=== PATIENT | female | born 1960 | race Caucasian/White ===

== ENCOUNTER → 2018-09-15 | Outpatient (CLI) | payer OTHER ==
--- NOTE | 2018-09-15 17:56 | Diagnostic Imaging Report ---
EXAMINATION: CHEST 2 VIEWS INDICATION: \[id number] \S\[id number] \S\Simple chronic bronchitis COMPARISON: None FINDINGS: PA and lateral views TUBES and LINES: None. LUNGS: Lungs are well inflated. Lungs are clear. There is no evidence of pneumonia or pulmonary edema. PLEURA: No pleural effusion or pneumothorax. HEART AND MEDIASTINUM: The cardiomediastinal silhouette is unremarkable. BONES AND SOFT TISSUES: No acute osseous lesion. Soft tissues are unremarkable. UPPER ABDOMEN: No free air under the diaphragm. IMPRESSION: No acute thoracic abnormality. Signed by: DR. Levy Davalos MD on 09/15/2018 5:52 PM
== END ==
LOC: RAD 17:10
PROVIDERS: ATTEND Internal Medicine
DX: J41.0 Simple chronic bronchitis (principal)
CPT/HCPCS: 71046

== ENCOUNTER → 2022-01-02 | Outpatient (CLI) | payer OTHER | LOC: RAD 15:51 | PROVIDERS: ATTEND Internal Medicine | DX: J06.9 Acute upper respiratory infection, unspecified (principal) | CPT/HCPCS: 71046 ==

== ENCOUNTER → 2023-05-02 | Outpatient (CLI) | payer OTHER | LOC: CT 11:31 | PROVIDERS: ATTEND Internal Medicine | DX: J41.0 Simple chronic bronchitis (principal); Z87.891 Personal history of nicotine dependence | CPT/HCPCS: 71250 ==